=== PATIENT | female | born 1980 | race Caucasian/White ===

== ENCOUNTER 2018-06-23 19:45 | Emergency (ER) | payer MEDICAID ==
[2018-06-23 19:48] VITALS: TEMP 99.5
[2018-06-23 20:20] LABS: BASO % 0.4 % (0.0-2.0); EOS # 0.2 (0.0-0.7); EOS % 2.2 % (0-4.0); GRAN # 8.8 (1.4-6.5); GRAN % 83.4 % (42.2-75.2); HEMATOCRIT 45.7 % (37.0-47.0); HEMOGLOBIN 15.4 g/dl (12.5-16.0); LYMPH % 9.3 % (20.0-51.0); MEAN CELL VOLUME 91 fl (80.0-100.0); MEAN CORPUSCULAR HEMOGLOBIN 31 pg (27.0-31.0); MEAN CORPUSCULAR HGB CONC 34 g/dl (33.0-37.0); MEAN PLATELET VOLUME 10.3 fl (7.4-10.4); MONO # 0.5 (0.1-0.6); MONO % 4.4 % (1.7-9.3); PLATELET COUNT 230 K/mm3 (130-400); RED BLOOD COUNT 5.01 M/mm3 (4.10-5.30); REDCELL DISTRIBUTION WIDTH-CV 12.4 % (11.5-14.5)
[2018-06-23 20:34] LABS: ALANINE AMINOTRANSFERASE 16 U/L (9-52); ALBUMIN 4.5 gm/dL (3.5-5.0); ALKALINE PHOSPHATASE 65 U/L (50-136); ANION GAP 9 mmol/L (7-16); AST,SGOT 21 U/L (15-37); BILIRUBIN,TOTAL 0.5 mg/dL (0.0-1.0); BLOOD UREA NITROGEN 10 mg/dL (7-17); CALCIUM 9.2 mg/dL (8.4-10.2); CARBON DIOXIDE 25 mmol/L (22-30); CHLORIDE 104 mmol/L (98-107); CREATININE, serum 0.54 mg/dL (0.52-1.25); GLUCOSE 95 mg/dL (74-106); LIPASE 41 U/L (23-300); POTASSIUM 3.7 mmol/L (3.4-5.0); SODIUM 139 mmol/L (137-145); TOTAL PROTEIN 8.1 gm/dL (6.4-8.2)
[2018-06-23 20:36] LABS: C-REACTIVE PROTEIN < 0.5 mg/dL (0.0-0.9)
[2018-06-23 20:53] LABS: COLLECTION METHOD CLEAN CATCH
[2018-06-23 21:04] LABS: MUCOUS Present /lpf; PH 5 (5-8); URINE APPEARANCE Hazy; URINE BACTERIA None Seen /hpf; URINE BILIRUBIN Negative (NEGATIVE); URINE BLOOD 2+ (NEGATIVE); URINE COLOR Yellow; URINE GLUCOSE Negative (NEGATIVE); URINE KETONE Negative (NEGATIVE); URINE LEUKOCYTE ESTERASE Trace (NEGATIVE); URINE NITRATE Negative (NEGATIVE); URINE PROTEIN(semi-quant) Negative (NEGATIVE); URINE RBC 0-2 /hpf; URINE UROBILINOGEN Negative (NEGATIVE)
[2018-06-23] MEDS ORDERED: ZOFRAN ODT4 MG PO (21:10)
[2018-06-23 21:20] VITALS: BP 107/65; PULSE 65
== END 2018-06-23 21:23 | disposition home or self-care (01) ==
LOC: COL.ER 19:45
PROVIDERS: Physician Assistant
DX: R19.7 Diarrhea, unspecified (principal); R11.2 Nausea with vomiting, unspecified
CPT/HCPCS: J1885; J2405; J7030

== ENCOUNTER 2018-09-07 15:55 | Emergency (ER) | payer MEDICAID ==
[~2018-09-07] VITALS: Ht 157.5 cm; Wt 66.8 kg
[~2018-09-07 15:55] MED LIST: ZOFRAN ODT4 MG PO
[2018-09-07 15:58] VITALS: BP 135/99; TEMP 96.9
[2018-09-07] MEDS ORDERED: NORCO 325 MG-51 TAB PO (16:15)
[2018-09-07] MEDS ORDERED: CLEOCIN HC150 MG/CAP PO (16:15)
[2018-09-07 16:27] VITALS: PULSE 79
== END 2018-09-07 16:25 | disposition home or self-care (01) ==
LOC: COL.ER 15:55
DX: K02.9 Dental caries, unspecified (principal); Z98.51 Tubal ligation status

== ENCOUNTER 2018-10-07 22:20 | Emergency (ER) | payer MEDICAID ==
[~2018-10-07] VITALS: Ht 157.5 cm; Wt 65.9 kg
[~2018-10-07 22:20] MED LIST changes: +CLEOCIN HC150 MG/CAP PO; +NORCO 325 MG-51 TAB PO
[2018-10-07 22:22] VITALS: BP 135/87; TEMP 97.2
[2018-10-07 23:37] VITALS: PULSE 64
== END 2018-10-07 23:35 | disposition home or self-care (01) ==
LOC: COL.ER 22:20
DX: Z71.1 Person with feared health complaint in whom no diagnosis is made (principal)

== ENCOUNTER 2018-11-06 13:56 | Emergency (ER) | payer MEDICAID ==
[~2018-11-06] VITALS: Ht 157.5 cm; Wt 64.5 kg
[2018-11-06 14:00] VITALS: TEMP 99
[2018-11-06] MEDS ORDERED: NORCO 325 MG-51 TAB PO (14:32)
[2018-11-06 15:18] VITALS: BP 114/50; PULSE 90
== END 2018-11-06 15:50 | disposition home or self-care (01) ==
LOC: COL.ER 13:56
DX: S93.401A Sprain of unspecified ligament of right ankle, initial encounter (principal); X50.1XXA Overexertion from prolonged static or awkward postures, initial encounter
CPT/HCPCS: J1170; J2550; Q4045

== ENCOUNTER 2019-11-21 20:15 | Emergency (ER) | payer MEDICAID ==
[~2019-11-21] VITALS: Ht 157.5 cm; Wt 68.2 kg
[2019-11-21 20:48] VITALS: BP 116/78; TEMP 98.1
[2019-11-21 22:11] VITALS: PULSE 79
== END 2019-11-21 22:11 | disposition home or self-care (01) ==
LOC: COL.ER 20:15
DX: L50.9 Urticaria, unspecified (principal); F17.210 Nicotine dependence, cigarettes, uncomplicated; Z98.51 Tubal ligation status
CPT/HCPCS: J1200; J3301